=== PATIENT | female | born 1955 | race Caucasian/White ===

== ENCOUNTER 2021-12-24 12:17 | Emergency (ER) | payer MEDICARE, OTHER ==
[2021-12-24 12:43] VITALS: BMI 21.2
[2021-12-24] MEDS ORDERED: ACETAMINOPHEN 325 MG TABLET (FP) PO ONE (13:52)
[2021-12-24] MEDS ORDERED: ACETAMINOPHEN 325 MG TABLET (FP) ONE (14:01)
[2021-12-24] MEDS ORDERED: FAMOTIDINE 20 MG/50 ML IVPB 20 MG/50 ML MG IVPB ONE ×2 (14:10→14:36)
[2021-12-24] MEDS ORDERED: MAG HYDROX/AL HYDROX/SIMETH 30 ML UNIT-DOSE CUP PO ONE (14:10)
[2021-12-24 14:23] LABS: BASO % 0.4 % (0-2.0); EOS % 3.1 % (0-4.5); HEMATOCRIT 35.7 % (32.4-45.2); HEMOGLOBIN 11.6 GM/dL (10.7-15.3); LYMPH % 44.4 % (8-40); MCH 24.3 pg (25.7-33.7); MCHC 32.4 g/dl (32.0-36.0); MEAN CELL VOLUME 75.2 fl (80-96); MEAN PLT VOLUME 8.2 fl (7.5-11.1); MONO % 8.8 % (3.8-10.2); NEUT % 43.3 % (42.8-82.8); PLATELET COUNT 220 10^3/uL (134-434); RBC 4.75 M/mm3 (3.60-5.2); RDW 13.6 % (11.6-15.6); WHITE BLOOD COUNT 2.8 K/mm3 (4.0-10.0)
[2021-12-24] MEDS ORDERED: MAG HYDROX/AL HYDROX/SIMETH 30 ML UNIT-DOSE CUP ONE (14:35)
[2021-12-24 14:37] LABS: ACTIVATED PTT 30.5 SECONDS (25.2-36.5); INR 1.12 (0.83-1.09); PROTHROMBIN TIME (PATIENT) 12.9 SEC (9.7-13.0)
[2021-12-24 14:48] LABS: ALBUMIN 3.4 g/dl (3.4-5.0); BLOOD UREA NITROGEN 18.6 mg/dL (7-18)
[2021-12-24 14:51] LABS: CREATININE 0.9 mg/dL (0.55-1.3)
[2021-12-24 14:52] LABS: BILIRUBIN,TOTAL 0.8 mg/dL (0.2-1)
[2021-12-24 14:53] LABS: TOT PROT 6.7 g/dl (6.4-8.2)
[2021-12-24 16:45] VITALS: BP 137/74; PULSE 62; RESP 20; TEMP 98.3
== END 2021-12-24 16:46 | disposition home or self-care (01) ==
LOC: JER 12:17
PROC: 3E033GC Introduction of Other Therapeutic Substance into Peripheral Vein, Percutaneous Approach (ICD-10-PCS; principal; 2021-12-24)
DX: R07.9 Chest pain, unspecified (principal)
CPT/HCPCS: 36415; 71046-TC-FY; 80053; 83690; 84484; 85025; 85610; 85730; 93005; 93010; 96374; 99284-25; C9803-CS; U0003; U0005

== ENCOUNTER 2023-09-24 18:44 | Emergency (ER) | payer MEDICARE, OTHER ==
[2023-09-24 18:59] VITALS: BP 141/72; PULSE 62; RESP 16; TEMP 97.9; BMI 22.6
[2023-09-24] MEDS ORDERED: LIDOCAINE 4% PATCH TP ONE (21:10)
[2023-09-24] MEDS: LIDOCAINE 4% PATCH TP ONE (21:15)
[2023-09-24 21:18] LABS: BASO % 0.3 % (0-2.0); EOS % 3.4 % (0-4.5); HEMATOCRIT 36.5 % (32.4-45.2); HEMOGLOBIN 11.6 GM/dL (10.7-15.3); MCH 24.3 pg (25.7-33.7); MCHC 31.8 g/dl (32.0-36.0); MEAN CELL VOLUME 76.6 fl (80-96); MONO % 7.9 % (3.8-10.2); NEUT % 42.4 % (42.8-82.8); PLATELET COUNT 247 10^3/uL (134-434); RBC 4.77 M/mm3 (3.60-5.2); RDW 13.9 % (11.6-15.6)
[2023-09-24 21:27] LABS: INR 0.96 (0.83-1.09); PROTHROMBIN TIME (PATIENT) 11.1 SEC (9.7-13.0)
[2023-09-24 21:29] LABS: ACTIVATED PTT 32.6 SECONDS (25.2-36.5)
[2023-09-24 21:45] LABS: CALCIUM 9.2 mg/dL (8.5-10.1)
[2023-09-24 21:46] LABS: ALBUMIN 4.2 g/dl (3.4-5.0)
[2023-09-24 21:49] LABS: CREATININE 0.8 mg/dL (0.55-1.3)
[2023-09-24 21:50] LABS: BILIRUBIN,TOTAL 0.9 mg/dL (0.2-1)
[2023-09-24 21:51] LABS: TOT PROT 7.4 g/dl (6.4-8.2)
[2023-09-24] MEDS: LIDOCAINE PATCH REMOVAL MC SCH (22:30)
[2023-09-24] MEDS ORDERED: ACETAMINOPHEN 325 MG TABLET (FP) ONE (22:34)
[2023-09-24] MEDS: ACETAMINOPHEN 500 MG TABLET (FP) PO ONE (22:41)
== END 2023-09-24 22:42 | disposition home or self-care (01) ==
LOC: JER 18:44
DX: R22.0 Localized swelling, mass and lump, head (principal); R04.1 Hemorrhage from throat; M54.42 Lumbago with sciatica, left side
CPT/HCPCS: 36415; 80053; 85025; 85610; 85730; 86850; 86900; 86901; 93005; 93010; 99284-25

== ENCOUNTER 2024-08-04 11:14 | Emergency (ER) | payer MEDICARE, OTHER ==
[2024-08-04 11:25] VITALS: BP 146/63; PULSE 57; RESP 16; TEMP 98.8; BMI 20.5
[2024-08-04 12:51] LABS: ABSOLUTE IMMATURE GRANULOCYTES 0.01 x10^3/uL (0.0-0.031); BASOPHILS # 0.02 x10^3/uL (0.01-0.08); EOSINOPHIL % 2.5 % (0.7-5.8); EOSINOPHILS # 0.08 x10^3/uL (0.04-0.36); HEMATOCRIT 36.1 % (34.1-44.9); HEMOGLOBIN 11.3 g/dL (11.2-15.7); MCHC 31.3 g/dl (32.2-35.5); MEAN CELL VOLUME 76.5 fl (79.4-94.8); MONOCYTE # 0.24 x10^3/uL (0.24-0.86); MONOCYTE % 7.6 % (4.7-12.5); PLATELET COUNT 321 x10^3/uL (182-369); RDW 14.2 % (12.4-16.4)
[2024-08-04 12:59] LABS: INR 1.13 (0.83-1.09); PROTHROMBIN TIME (PATIENT) 12.4 SEC (9.7-13.0)
[2024-08-04 13:01] LABS: ACTIVATED PTT 29.9 SECONDS (25.2-36.5)
[2024-08-04 13:06] LABS: POTASSIUM 4.4 mmol/L (3.5-5.1)
[2024-08-04 13:08] LABS: CALCIUM 9.3 mg/dL (8.5-10.1)
[2024-08-04 13:09] LABS: ALBUMIN 3.9 g/dl (3.4-5.0); BLOOD UREA NITROGEN 22.5 mg/dL (7-18); MAGNESIUM 2.5 mg/dL (1.8-2.4)
[2024-08-04 13:12] LABS: CREATININE 0.8 mg/dL (0.55-1.3)
[2024-08-04 13:13] LABS: BILIRUBIN,TOTAL 1.4 mg/dL (0.2-1); TOT PROT 7.4 g/dl (6.4-8.2)
[2024-08-04 14:05] LABS: EPI CELLS >36 /uL (0-25.1); HYALINE CASTS 0 /uL (0-3.1); PH,URINE 6.5 (5.0-8.0); URINE APPEARANCE CLEAR; URINE BACTERIA 149 /uL (0-1359); URINE BILIRUBIN NEGATIVE (NEGATIVE); URINE COLOR YELLOW; URINE GLUCOSE (UA) NEGATIVE (NEGATIVE); URINE KETONE NEGATIVE (NEGATIVE); URINE LEUK ESTERASE 3+ (NEGATIVE); URINE NITRITE NEGATIVE (NEGATIVE); URINE PROTEIN NEGATIVE (NEGATIVE); URINE RBC 61 /uL (0-23.9); URINE UROBILINOGEN 0.2 mg/dL (0.2-1.0); URINE WBC 97 /uL (0-25.8)
[2024-08-04 14:40] LABS: HCV DIAGNOSTIC IN-HOUSE W/RFLX NON-REACTIVE (NONREACTIVE); HIV INTERPRETATION NEGATIVE (NEGATIVE)
== END 2024-08-04 16:18 | disposition home or self-care (01) ==
LOC: JER 11:14
DX: N39.0 Urinary tract infection, site not specified (principal); R10.30 Lower abdominal pain, unspecified
CPT/HCPCS: 36415; 74177-TC; 80053; 81003; 83605; 83735; 85025; 85610; 85730; 86803; 86850; 86900; 86901; 87086; 87389; 99285-25; Q9967

== ENCOUNTER 2024-08-24 05:39 | Observation (INO) | payer MEDICARE, OTHER ==
[2024-08-24] MEDS ORDERED: diphenhydrAMINE HCL 25 MG CAPSULE (FP) PO ONE (07:53)
[2024-08-24] MEDS ORDERED: FAMOTIDINE 10 MG TABLET ONE (07:54)
[2024-08-24] MEDS ORDERED: predniSONE 20 MG TABLET (UD) ONE (07:54)
[2024-08-24] MEDS: predniSONE 20 MG TABLET (UD) PO ONE (08:02)
[2024-08-24] MEDS: FAMOTIDINE 10 MG TABLET PO ONE (08:02)
[2024-08-24] MEDS: diphenhydrAMINE HCL 25 MG CAPSULE (FP) PO ONE (08:02)
[2024-08-24] MEDS ORDERED: FAMOTIDINE 20 MG TABLET ONE (09:57)
[2024-08-24] MEDS ORDERED: DEXAMETHASONE SOD PHOSPHATE 10 MG/1 ML VIAL ONE (10:06)
[2024-08-24] MEDS ORDERED: FAMOTIDINE 20 MG/50 ML IVPB 20 MG/50 ML MG IVPB ONE (10:06)
[2024-08-24] MEDS: FAMOTIDINE 20 MG TABLET PO ONE (10:29)
[2024-08-24] MEDS: FAMOTIDINE 20 MG/50 ML IVPB 20 MG/50 ML MG IVPB ONE (10:29)
[2024-08-24] MEDS: DEXAMETHASONE SOD PHOSPHATE 10 MG/1 ML VIAL IVPUSH ONE (10:29)
[2024-08-24 10:40] LABS: ABSOLUTE IMMATURE GRANULOCYTES 0.02 x10^3/uL (0.0-0.031); BASOPHILS # 0.01 x10^3/uL (0.01-0.08); EOSINOPHIL % 0.5 % (0.7-5.8); EOSINOPHILS # 0.03 x10^3/uL (0.04-0.36); HEMATOCRIT 35.3 % (34.1-44.9); HEMOGLOBIN 10.9 g/dL (11.2-15.7); MCHC 30.9 g/dl (32.2-35.5); MEAN CELL VOLUME 77.8 fl (79.4-94.8); MONOCYTE # 0.11 x10^3/uL (0.24-0.86); MONOCYTE % 1.9 % (4.7-12.5); PLATELET COUNT 247 x10^3/uL (182-369); RDW 13.6 % (12.4-16.4)
[2024-08-24 10:54] LABS: POTASSIUM 4.8 mmol/L (3.5-5.1)
[2024-08-24 10:57] LABS: ALBUMIN 3.5 g/dl (3.4-5.0); BLOOD UREA NITROGEN 20.2 mg/dL (7-18)
[2024-08-24 11:01] LABS: BILIRUBIN,TOTAL 0.6 mg/dL (0.2-1); TOT PROT 6.5 g/dl (6.4-8.2)
[2024-08-24] MEDS ORDERED: EPINEPHrine 1:1,000 0.3 MG/0.3 ML SYR IM PRN (11:56)
[2024-08-24 14:46] VITALS: BMI 23.6
[2024-08-24] MEDS: SODIUM CHLORIDE 1,000 ML IV SCH (15:40)
[2024-08-24] MEDS: HEPARIN NA (PORCINE) 5,000 UNITS/ML 1ML VIAL SQ SCH (15:40)
[2024-08-24] MEDS: GABAPENTIN 300 MG CAPSULE PO SCH (21:21)
[2024-08-24] MEDS: FAMOTIDINE 10 MG TABLET PO SCH (21:21)
[2024-08-24] MEDS: LATANOPROST 0.005% OPHTH SOLN 2.5ML BOTTLE OU SCH (22:47)
[2024-08-25 06:55] LABS: ABSOLUTE IMMATURE GRANULOCYTES 0.01 x10^3/uL (0.0-0.031); BASOPHILS # 0.01 x10^3/uL (0.01-0.08); EOSINOPHIL % 0.2 % (0.7-5.8); EOSINOPHILS # 0.01 x10^3/uL (0.04-0.36); HEMATOCRIT 34.1 % (34.1-44.9); HEMOGLOBIN 10.4 g/dL (11.2-15.7); MCHC 30.5 g/dl (32.2-35.5); MEAN CELL VOLUME 77.7 fl (79.4-94.8); MEAN PLT VOLUME 9.9 fl (9.4-12.3); MONOCYTE # 0.31 x10^3/uL (0.24-0.86); MONOCYTE % 5.1 % (4.7-12.5); PLATELET COUNT 257 x10^3/uL (182-369); RDW 13.4 % (12.4-16.4)
[2024-08-25 07:10] LABS: POTASSIUM 3.8 mmol/L (3.5-5.1)
[2024-08-25 07:16] LABS: ALBUMIN 3.4 g/dl (3.4-5.0); CALCIUM 9.1 mg/dL (8.5-10.1)
[2024-08-25 07:17] LABS: BLOOD UREA NITROGEN 17.4 mg/dL (7-18); MAGNESIUM 2.2 mg/dL (1.8-2.4)
[2024-08-25 07:20] LABS: CREATININE 0.9 mg/dL (0.55-1.3); PHOSPHOROUS 3.2 mg/dL (2.5-4.9)
[2024-08-25 07:21] LABS: BILIRUBIN,TOTAL 0.8 mg/dL (0.2-1); TOT PROT 6.6 g/dl (6.4-8.2)
[2024-08-25] MEDS ORDERED: RACEPINEPHRINE IH SOL 2.25% 11.25 MG/0.5 ML VIAL NEB SCH (10:00)
[2024-08-25] MEDS ORDERED: predniSONE 20 MG TABLET (UD) PO SCH (10:00)
[2024-08-25] MEDS: predniSONE 40 MG, predniSONE 10 MG PO SCH (11:24)
[2024-08-25] MEDS: RACEPINEPHRINE IH SOL 2.25% 11.25 MG/0.5 ML VIAL NEB ONE (11:40)
[2024-08-25 15:43] VITALS: PULSE 62
[2024-08-25 18:21] VITALS: BP 126/73; RESP 17; TEMP 98.2
== END 2024-08-25 20:30 | disposition left against medical advice (07) ==
LOC: JER 05:39 → JERBED 10:05 → J4S 14:00
PROVIDERS: ADMIT Internal Medicine
PROC: 3E033GC Introduction of Other Therapeutic Substance into Peripheral Vein, Percutaneous Approach (ICD-10-PCS; principal; 2024-08-24)
PROC: 3E033NZ Introduction of Analgesics, Hypnotics, Sedatives into Peripheral Vein, Percutaneous Approach (ICD-10-PCS; 2024-08-24)
PROC: 3E0F7GC Introduction of Other Therapeutic Substance into Respiratory Tract, Via Natural or Artificial Opening (ICD-10-PCS; 2024-08-24)
PROC: 3E033GC Introduction of Other Therapeutic Substance into Peripheral Vein, Percutaneous Approach (ICD-10-PCS; 2024-08-24)
DX: R21 Rash and other nonspecific skin eruption (principal); T78.3XXA Angioneurotic edema, initial encounter; X58.XXXA Exposure to other specified factors, initial encounter; R22.0 Localized swelling, mass and lump, head; D50.0 Iron deficiency anemia secondary to blood loss (chronic); N17.9 Acute kidney failure, unspecified; K21.9 Gastro-esophageal reflux disease without esophagitis; Z29.9 Encounter for prophylactic measures, unspecified
CPT/HCPCS: 36415; 70360-TC-FY; 80053; 83735; 84100; 85025; 93005; 93010; 94640; 96361; 96365; 96372; 96375; 96376; 99285-25; G0378; J1100